=== PATIENT | male | born 1995 | race Caucasian/White ===

== ENCOUNTER 2022-10-01 13:58 | Day surgery (SDC) | payer BC, MEDICAID ==
[2022-10-01] MEDS ORDERED: Depo-Medrol 40 MG/ML IM ONE (13:59)
[2022-10-01] MEDS ORDERED: BUPIVACAINE 0.5% VIAL IJ ONE (13:59)
[2022-10-01] MEDS ORDERED: DIPRIVAN 200 MG/20 ML IV ONE (15:48)
[2022-10-01] MEDS ORDERED: Versed 2 MG/2 ML Injection ONE (15:52)
--- NOTE | 2022-10-01 16:48 | XRAY ---
Indication: Bilateral SI joint injection. Intraoperative fluoroscopy provided for 14 seconds. 4 digital spot image submitted for interpretation demonstrates posterior needle tip projecting over the left and right SI joint. Correlate with intraoperative findings/report.
--- NOTE | 2022-10-01 17:12 | XRAY ---
14 seconds fluoroscopy time in surgery for bilateral SI joint injections..
== END 2022-10-01 16:20 | disposition home or self-care (01) ==
LOC: SDC-PAIN 13:58
PROVIDERS: ATTEND Psychiatry & Neurology Pain Medicine
DX: M46.1 Sacroiliitis, not elsewhere classified (principal); Z79.899 Other long term (current) drug therapy
CPT/HCPCS: 27096; 72202; 77002; J1030; J2250; J2704; G0260

== ENCOUNTER 2022-12-17 14:44 | Day surgery (SDC) | payer BC, MEDICAID ==
[2022-12-17] MEDS ORDERED: BUPIVACAINE 0.5% VIAL IJ ONE (14:45)
[2022-12-17] MEDS ORDERED: Depo-Medrol 40 MG/ML IM ONE (14:45)
[2022-12-17] MEDS ORDERED: DIPRIVAN 200 MG/20 ML IV ONE ×2 (15:18→15:33)
[2022-12-17] MEDS ORDERED: Lactated Ringers 1,000 ML IV ONE (16:05)
--- NOTE | 2022-12-17 23:30 | XRAY ---
Indication: Bilateral hip injection. Intraoperative fluoroscopy provided for 45 seconds. 3 digital spot image submitted for interpretation demonstrates needle tips projecting lateral to the left/right femur necks. Small amount of contrast injected for all needle tip placement. Correlate with intraoperative findings/report.
--- NOTE | 2022-12-18 15:07 | XRAY ---
45 seconds of fluoroscopy was used in surgery for a bilateral intra-articular hip injection.
== END 2022-12-17 16:00 | disposition home or self-care (01) ==
LOC: SDC-PAIN 14:44
PROVIDERS: ATTEND Psychiatry & Neurology Pain Medicine
DX: M16.0 Bilateral primary osteoarthritis of hip (principal); Z79.899 Other long term (current) drug therapy
CPT/HCPCS: 20610; 73521; 77002; J1030; J2704; Q9966

== ENCOUNTER 2023-05-21 13:58 | Day surgery (SDC) | payer BC, MEDICAID ==
[2023-05-21] MEDS ORDERED: BUPIVACAINE 0.5% VIAL IJ ONE (13:59)
[2023-05-21] MEDS ORDERED: Depo-Medrol 40 MG/ML IM ONE (13:59)
[2023-05-21] MEDS ORDERED: Lactated Ringers 1,000 ML IV ONE (16:07)
[2023-05-21] MEDS ORDERED: DIPRIVAN 200 MG/20 ML IV ONE ×2 (16:40→16:53)
--- NOTE | 2023-05-21 20:11 | XRAY ---
Indication: Bilateral SI joint and bilateral hip injection. Intraoperative fluoroscopy provided for 51 seconds. 8 digital spot image submitted for interpretation demonstrates posterior needle tip projecting over the left and right SI joints. Additional needle tip lateral to the left and right femur neck with small amount of contrast injected for needle tip placement. Correlate with intraoperative findings/report.
--- NOTE | 2023-05-22 10:04 | XRAY ---
51 seconds of fluoroscopy was used in surgery for a bilateral sacroiliac joint and bilateral intra-articular hip injection.
== END 2023-05-21 17:20 | disposition home or self-care (01) ==
LOC: SDC-PAIN 13:58
PROVIDERS: ATTEND Psychiatry & Neurology Pain Medicine
DX: M46.1 Sacroiliitis, not elsewhere classified (principal); M16.0 Bilateral primary osteoarthritis of hip
CPT/HCPCS: 20610; 27096; 73522; 77002; J1030; J2704; Q9966; G0260